=== PATIENT | male | born 1975 | race Caucasian/White ===

== ENCOUNTER 2020-04-08 12:45 | Emergency (ER) | payer OTHER ==
[2020-04-08 13:14] VITALS: BP 143/87; PULSE 83; TEMP 100.4; BMI 34.9
== END 2020-04-08 15:03 | disposition home or self-care (01) ==
LOC: JER 12:45
DX: U07.1 COVID-19 (principal)
CPT/HCPCS: 71046-TC-FY; 99284-25; C9803; U0003